=== PATIENT | female | born 1965 | race Caucasian/White ===

== ENCOUNTER 2020-02-28 10:31 | Outpatient (CLI) | payer OTHER, SELFPAY ==
--- NOTE | 2020-02-28 10:45 | ECG_ITS ---
Measurements Intervals [place] Rate: 82 P: 58 VA: 143 QRS: 9 QRSD: 86 T: 62 QT: 350 QTc: 409 Interpretive Statements SINUS RHYTHM BASELINE ARTIFACT- I, II, III, AVR, AVL, AVF NORMAL ECG Electronically Signed On 02-28-2020 10:48:56 CDT by Mike Walker D.O.
== END 2020-02-28 10:32 | disposition home or self-care (01) ==
LOC: ANHSURGERY 10:36
PROVIDERS: Visit Provider Obstetrics & Gynecology
DX: E78.00 Pure hypercholesterolemia, unspecified (principal); Z01.818 Encounter for other preprocedural examination
CPT/HCPCS: 93005

== ENCOUNTER 2020-03-05 00:38 | Outpatient (CLI) | payer OTHER, SELFPAY ==
[2020-03-05 16:30] LABS: SARS-CoV-2 RNA PCR Negative
== END 2020-03-05 00:39 | disposition home or self-care (01) ==
LOC: ANHCOVIDDT 00:38
PROVIDERS: Visit Provider Obstetrics & Gynecology
DX: Z01.812 Encounter for preprocedural laboratory examination (principal); Z20.828 Contact with and (suspected) exposure to other viral communicable diseases
CPT/HCPCS: 87635; C9803; U0003

== ENCOUNTER 2020-03-07 00:39 | Day surgery (SDC) | payer OTHER, SELFPAY ==
[2020-02-24 10:43] VITALS: BMI 30.9
--- NOTE | 2020-03-06 08:41 | WPDANESEPPF ---
Anes - Initial Pre Proc Eval Procedure: Operation Date: 03/07/20 11:15 Proposed Procedures p Hysteroscopy, Dilation And Curettage, Possible Myosure - Baljinder Tomas MD Date/Time: 03/06/20 08:41 Surgeon: Baljinder Tomas MD Pre Op Diagnosis: Thickened Endometrium Patient Data Age: 54 Gender: F Height: 1.63 m Weight: 81.65 kg Allergies Allergy/AdvReac Type Severity Reaction Status Date / Time No Known Allergies Allergy Verified 03/07/20 09:29 Home Medications Medication Instructions Recorded Confirmed Type atorvastatin 20 mg tablet 20 mg PO DAILY 11/22/19 03/07/20 History duloxetine 60 mg capsule,delayed 60 mg PO DAILY 11/22/19 03/07/20 History release calcium carbonate 500 mg calcium 500 mg PO DAILY 02/01/20 03/07/20 History (1,250 mg) tablet exemestane 25 mg tablet 25 mg PO DAILY 02/01/20 03/07/20 History Zoladex See Rx Instructions .ROUTE .COMPLEX 02/24/20 02/24/20 History prochlorperazine maleate 10 mg PO Q6H PRN 02/24/20 02/24/20 History Patient hx anesthesia problems: none Family hx anesthesia problems: none PMFSH Past Medical History Medical History (Updated 03/07/20 @ 10:13 by Alonso Nevarez DO) Breast cancer, Tx and Mx Depression High cholesterol Vaginal delivery x 2 Surgical History Surgical History History of arthroscopic knee surgery History of surgery on arm Family History Family History Mother Hypertension, Onset Age: 68 Patient's mother is Father Hypertension Family history of elevated blood lipids Sibling Family history of elevated blood lipids Social History Social History Smoking status: Never smoker Second hand tobacco smoke exposure: No Alcohol intake: current Spiritual care concerns: No Anes - Eval Final PreProcedure Day of Procedure 03/06/20 08:41 Patient weight: obese Heart: regular rate and rhythm Lungs: clear to auscultation and normal air movement Airway: Mallampati scale class II Neurological: alert and oriented Last oral intake: >/= 8 hours ASA classification: II Emergent: no Anesthetic plan: proceed Anesthesia type and monitoring: general GIVS and standard monitoring Informed Consent: The patient's anesthetic plan and its attendant risks and benefits were discussed with the patient/family/POA. Questions were solicited and answers provided to the satisfaction of the patient/family/POA.
--- NOTE | 2020-03-07 06:20 | PM.IMHP ---
H&P: HPI History of Present Illness Date/Time: 03/07/20 06:20 Chief complaint: Thickened Endometrium Narrative: Felicitas Berrios is a 54 year old female with thickened endometrial stripe on ultrasound. She is undergoing treatment for breast cancer and had test done by oncologist which showed her not to be menopausal range. Due to being on tamoxifen and risk of endometrial pathology, a pelvic ultrasound was ordered to evaluate the endometrial lining and the endometrial lining was thickened and some vascularity in the thickening. Subsequent endometrial biopsy in office was negative for polyp, hyperplasia or carcinoma but did comment on presence of hobnail cells which she was informed can be seen if lining is undergoing changes toward hyperplasia. Due to this and her risk of abnormal endometrial histology on her current medication, it was recommended for direct visualization and biopsy if indicated and dilation and currettage. She agreed to this. Review of Systems Review of Systems: All systems reviewed & are unremarkable except as noted in HPI and below Constitutional: Constitutional: Reports no additional constitutional complaints Eyes: Eyes: Reports no additional eye complaints ENT: Reports Normal hearing present Cardiovascular: Cardiovascular: Denies chest pain and Denies dyspnea Respiratory: Respiratory: Reports no additional respiratory complaints, Reports cough, Denies dyspnea and Reports other Gastrointestinal: Gastrointestinal: Denies abdominal pain Genitourinary: Genitourinary: Reports no additional female genitourinary complaints, Reports as per HPI, Denies dyspareunia, Denies vaginal discharge, Denies vaginal dryness, Denies vaginal odor and Denies vaginal pruritus Integumentary/Breasts: Skin/Breast: Denies breast mass and Denies nipple discharge Neurologic: Reports Normal hearing present Psychiatric: Psychiatric: Reports no additional psychiatric complaints Endocrine: Endocrine: Reports no additional endocrine complaints Hematologic/Lymphatic: Hematologic/Lymphatic: Reports no additional hematologic/lymphatic complaints [facility] Past Medical History Medical History (Updated 03/07/20 @ 10:13 by Alonso Nevarez DO) Breast cancer, Tx and Mx Depression High cholesterol Vaginal delivery x 2 Surgical History Surgical History History of arthroscopic knee surgery History of surgery on arm Family History Family History Mother Hypertension, Onset Age: 68 Patient's mother is Father Hypertension Family history of elevated blood lipids Sibling Family history of elevated blood lipids Social History Social History Smoking status: Never smoker Second hand tobacco smoke exposure: No Alcohol intake: current Spiritual care concerns: No Meds Home Medications and Allergies Home Medications Medication Instructions Recorded Confirmed Type atorvastatin 20 mg tablet 20 mg PO DAILY 11/22/19 03/07/20 History duloxetine 60 mg capsule,delayed 60 mg PO DAILY 11/22/19 03/07/20 History release calcium carbonate 500 mg calcium 500 mg PO DAILY 02/01/20 03/07/20 History (1,250 mg) tablet exemestane 25 mg tablet 25 mg PO DAILY 02/01/20 03/07/20 History Zoladex See Rx Instructions .ROUTE .COMPLEX 02/24/20 02/24/20 History prochlorperazine maleate 10 mg PO Q6H PRN 02/24/20 02/24/20 History Allergies Allergy/AdvReac Type Severity Reaction Status Date / Time No Known Allergies Allergy Verified 03/07/20 09:29 Exam Const: General: healthy appearing, no acute distress, alert and awake Nutritional Appearance: well nourished Orientation/consciousness: oriented to person, oriented to place, oriented to time and patient oriented x3 HENMT: Head: normal to inspection Eyes: General: appearance normal, both eye
[2020-03-07 09:27] VITALS: BP 122/82; PULSE 85; RESP 20; TEMP 36.2; O2SAT 97
[2020-03-07] MEDS: ACETAMINOPHEN 500 MG TABLET 1000 MG PO (09:42)
[2020-03-07] MEDS: LACTATED RINGERS 1,000 ML 30 ML IV CONT (09:43)
--- NOTE | 2020-03-07 11:10 | SUR.PREOP ---
update provided r/t to delay w/surgeon/acknowledges understanding/family update provided as noted.
--- NOTE | 2020-03-07 12:59 | WPDHPUPDATE1 ---
History and Physical Update Update Date/Time: 03/07/20 12:59 History and Physical has been reviewed, including an updated exam of the patient. There are NO changes in the patient's condition. Risks, benefits, and alternatives have been discussed and questions answered. Patient agrees to proceed with procedure.
[2020-03-07] MEDS: ceFAZolin 2 GM/D5W 50 ML 2 GM/50 ML BAG IVPB (13:18)
[2020-03-07 13:55] VITALS: BP 104/63; PULSE 59; RESP 20; O2SAT 90
[2020-03-07] MEDS: fentaNYL CITRATE INJ (*CRX) 100 MCG/2 ML VIAL 25 MCG IV PUSH ×2 (14:01→14:08)
[2020-03-07 14:15] VITALS: BP 106/67; PULSE 57; RESP 20; O2SAT 93
[2020-03-07 14:45] VITALS: BP 142/78; PULSE 52; RESP 20; O2SAT 96
[2020-03-07 15:15] VITALS: BP 126/67; PULSE 54; RESP 20
--- NOTE | 2020-03-08 12:16 | PM.PROC ---
Procedure Note - Detailed Date of procedure: 03/08/20 Pre-op diagnosis: Thickened Endometrium Post-op diagnosis: same (1. Endometrial lesion) Procedure performed: Hysteroscopy with dilation and currettage and myosure excision of endometrial lesion. Description of procedure: After informed consent was obtained patient was taken to the operating room. Adequate IV sedation was obtained. she was placed in high lithotomy position and prepped and draped in sterile fashion. Attention was turned to the vagina. Speculum was inserted. Single-tooth tenaculum placed on anterior lip of the cervix. The uterus was sounded to 8 centimeters. The cervix was dilated to a size 8 Andrade dilator. The hysteroscope was inserted. The cavity there was a flat growth anterior mid to lower cavity. The myosure was inserted and the lesion was excised. The hysteroscope was removed and a sharp curettage was performed. Scant tissue obtained. An endocervical curettage was also performed. The tenaculum was removed hemostasis was noted at the tenaculum site. The speculum was removed. The patient tolerated the procedure well. There was a 250cc discrepancy of insufflation fluid of normal saline. Patient was taken to recovery room in stable condition the sponge count was correct x3. Anesthesia: MAC and local Surgeon: Baljinder Tomas MD Estimated blood loss (mL): 5 Drains: No Packing: No Pathology: yes (1. Endocervical currettage 2. Endometrial currettings) Complications: No immediate complications Condition: stable Disposition: same day Findings: Uterus sound to 8cm, uterine cavity with flat lesion excised.
== END 2020-03-07 15:29 | disposition home or self-care (01) ==
PROVIDERS: Visit Provider Obstetrics & Gynecology
PROC: 0U5B8ZZ Destruction of Endometrium, Via Natural or Artificial Opening Endoscopic (ICD-10-PCS; CPT 58563; principal; 2020-03-07 11:15)
DX: N84.0 Polyp of corpus uteri (principal); E78.00 Pure hypercholesterolemia, unspecified; F32.9 Major depressive disorder, single episode, unspecified; Z79.811 Long term (current) use of aromatase inhibitors; Z85.3 Personal history of malignant neoplasm of breast; E66.9 Obesity, unspecified; Z68.31 Body mass index [BMI] 31.0-31.9, adult
CPT/HCPCS: 58558; 88305; A9270; J0690; J2250; J2704; J3010; J7030; J7120

== ENCOUNTER 2025-03-02 11:16 | Outpatient (CLI) | payer OTHER, SELFPAY ==
--- NOTE | ~2025-03-02 | US_ITS ---
EXAMINATION: US pelvic complete w TV, 03/02/2025 11:18 CDT HISTORY: R31.9 - Hematuria, unspecified Comparison: None Technique: Steinberg-scale and color Doppler images were obtained. Findings: Uterus: Uterus anteverted in 6.2 x 3.2 x 4 cm. . Endometrium 6.2 mm. Within the endometrium there is a small cystic focus measuring 5 x 7 mm, no increased flow. Right Ovary:Right ovary not identified due to bowel gas. Left Ovary: Left ovary not identified due to bowel gas. Free Fluid: None Impression: Endometrial lesion detailed above. Cystic endometrial neoplasm is not excluded. Tissue sampling suggested Reviewed, dictated and finalized at location P. Impression: Endometrial lesion detailed above. Cystic endometrial neoplasm is not excluded. Tissue sampling suggested
== END 2025-03-02 11:17 | disposition home or self-care (01) ==
LOC: MICIMG 11:17
PROVIDERS: PCP Obstetrics & Gynecology; Visit Provider Obstetrics & Gynecology
DX: R31.9 Hematuria, unspecified (principal); N95.0 Postmenopausal bleeding
CPT/HCPCS: 76830; 76856

== ENCOUNTER 2025-04-12 01:41 | Day surgery (SDC) | payer OTHER, SELFPAY ==
--- OUTSIDE RECORDS SUMMARY | 2019-02-03 18:00 | XMS_ITS | Continuity of Care Document ---
[facility] Organization [facility] Address [address] [place] [address] Phone Care Team Providers Care Ocean Import Representative Name Role Phone Danny Ferro MD Unavailable Unavailable Procedures Procedure Date SCREENING COLONOSCOPY (NOT HIGH RISK) Advance Directives Directive Yes / No Effective Date File Name No Information Encounters Encounter Description Practice Location Reason(s) For Visit Diagnoses Date Provider Providers Copied on Encounter [facility], [address], [place], [place], [id number], [place] tel:[phone] [facility] No Information Pillo Delgado. [address] [facility], [address] [place], [address], [place]. tel:[phone] Referring Provider: Elgin Tyler, [facility] [address], [address]. tel:[phone] Family History Family Member Type Diagnosis Age At Onset No Information Payers Payer name Insurance type Covered alliance party ID Authoriza tion(s) [facility] [id number] Social History Type Description Quantity Date Captured Comments Sex Female Smoking Status No Information Chief Complaint And Reason For Visit No Information Reason For Referral Reason For Referral No Information History Of Present Illness Encounter Date Complaint History Of Prese nt Illness No Information Functional Status Date Functional Assessmen t No Information Instructions Date Instruction Additional Infor mation No Information Assessments Type Assessment Date No Information Patient Care Teams Name Effective Dates (start - stop) Status Members No Information
--- NOTE | 2025-04-10 09:39 | PC.NURSE ---
[facility] has started construction of its new state of the art ER which will open Spring 2026. With this, we anticipate parking may be a challenge for some our surgical patients and families. Parking spaces are limited but are available for all Surgical, obstetrics, and ER patients sharing this lot. If you arrive and find you are having a hard time finding a parking space, please note that we understand the challenges, please drive around the hospital and park near Hospital Entrance 1. When you enter this entrance, you can ask a volunteer to direct or take you back to the surgical waiting area to check in. We appreciate everyone?s understanding of these expected challenges while we build for your future. Report to the Outpatient Waiting Room, entrance under the green pavilion located off [address], at time __12:30 PM on date __04/12/25 . Planned Procedure Time: __2:30 PM .? Time changes happen often and if your time is changed the preop area will call you the afternoon before. - You and your visitor will be asked to self-screen and do not enter if you have any COVID symptoms. Please call surgeon if you need to reschedule. - A mask is optional within the hospital at this time. Patients may have clear liquids (water, carbonated beverages, clear teas, apple juice) until 3 hours prior to surgery ( 11:30 AM)with a maximum of 20 ounces. - No food from midnight until time of surgery and no smoking, or chewing tobacco (or any form of nicotine). No chewing gum, candy or mints. Take only the following medications with a SIP of water on the morning of surgery: ___DULOXETINE DO NOT STOP ANY OF YOUR OTHER PRESCRIPTION MEDICATIONS PRIOR TO SURGERY EXCEPT THE FOLLOWING Hold all vitamins and supplements for 3 days per anesthesiologist.LAST DOSE 04/09/25 Medications to discontinue per physician NONE Please no make-up, nail sinhala, hairspray, perfume, deodorant, or body powder the day of surgery.? No jewelry (including any body piercings) or valuables the day of surgery, leave them at home.? Please take a shower or bath the night before, or the morning of, surgery with an antibacterial soap.? Wear comfortable, loose fitting clothing.? Children are encouraged to wear pajamas. - Jewelry must be removed prior to entering the operating room.? Rings and piercings that are not removed may be cut off. - The hospital will not accept responsibility for valuables.? - Please leave all valuables, including medications, at home the day of surgery. If you are going home after surgery, a licensed national dedicated truck driver must drive you home.? - NO public transportation without another adult if you receive anesthesia. - We recommend that an adult stay with you for 24 hours following discharge. - We also recommend that you do not drive, make important decision, drink alcoholic beverages, or take any drugs that were not prescribed by your health care provider for at least 24 hours after your discharge time. Follow any additional instructions given to you from your surgeon. Telephone instructions given to __PATIENT and asked if any additional questions and then verbalized understanding. Patient advised to call surgeon office or pre surgery nurse liaison [phone] if any additional questions.
[2025-04-10 09:57] VITALS: BMI 30.4
--- OUTSIDE RECORDS SUMMARY | 2025-04-12 01:44 | XMS_ITS | Clinical Summary ---
Author Organization [facility] Address [address] [place] [address] Care Team Providers Care National Secretary Name Role Phone Unavailable Primary Care Provider Unavailabl e Social History Tobacco Use Types Packs/Day Years Used Date Smoking Tobacco: Never Assessed Comments Unknown Sex and Gender Information Value Date Recorded Sex Assigned at Not on file Legal Sex Female 7:24 PM CDT Gender Identity Not on file Sexual Orientation Not on file Plan of Treatment Health Maintenance Due Date Last Done Comments Cervical Cancer Screening Pa p Smear (Age 30 to 64) Every 3 Years 1966 Colorectal Cancer Screening Colonoscopy (10 Years) 1966 Annual Physical 1969 Hepatitis C 1984 DTaP, Tdap and Td Vaccines ( 1 - Tdap) 1985 Hepatitis B Vaccines (1 of 3 - 19+ 3-dose series) 1985 Cervical Cancer Screening Pa p with HPV Testing (Age 30 to 64) Every 5 Years 1996 Cervical Cancer Screening with HPV 1996 Mammogram Screening 2006 Pneumococcal Vaccine: 50+ Ye ars (1 of 1 - PCV) 2016 Zoster Vaccines (1 of 2) 2016 COVID-19 Vaccine (2024-2 6 season) 2025 Influenza Adult (#1) 2025 Hepatitis A Vaccines Aged Out No long er eligible based on patient's age to complete this topic Meningococcal B Vaccine Aged Out No l onger eligible based on patient's age to complete this topic Meningococcal Vaccine Aged Out No tiffany karlene eligible based on patient's age to complete this topic RSV Immunizations Under 20 Months Aged Out No longer eligible based on patient's age to complete this topic
--- OUTSIDE RECORDS SUMMARY | 2025-04-12 01:44 | XMS_ITS | Encounter Summary ---
Author Organization [facility] Address [address] [place] [address] Phone Care Team Providers Care Substation Mechanic Name Role Phone Prosper Vinson DO Primary Care Provider [phone] Baljinder Tomas MD Unavailable Elgin Tyler MD Unavailable Tiffanie Walden MD Unavailable Jesenia Grimaldo MD Unavailable Marin Piña DO Primary Care Provider Kalee Leija Unavailable Jagdish Huynh MD Unavailable Encounter Details Date Type Department Care Team (Late st Contact Info) Description 01/27/2019 Documentation [facility] Medicine Surgery [address] [place] [address] Suma Arredondo Social History Tobacco Use Types Packs/Day Years Used Date Smoking Tobacco: Never Smokeless Tobacco: Never Alcohol Use Standard Drinks/Week Comments Yes 1 (1 standard drink = 0.6 oz pur e alcohol) socially Comments No Sex and Gender Information Value Date Recorded Sex Assigned at Not on file 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 Gender Identity Not on file Sexual Orientation Not on file documented as of this encounter Plan of Treatment Not on file documented as of this encounter Visit Diagnoses Not on filedocumented in this encounter Care Teams Substation Mechanic Relationship Specialty Start Date End Date Prosper Vinson DO [address] [place] [address] PCP - General Family Medicine 09/01/18 06/02/19 Marin Piña DO [address] [place] [address] PCP - General Family Practice 06/03/19 Baljinder Tomas MD [address] [facility] [address] [facility] [address] [place] [address] Referring Physician Obstetrics and Gynecology 09/01/18 Elgin Tyler MD [address] [place] [address] Medical Oncologist/Flatware Maker Medical Oncology 12/06/18 12/17/23 Tiffanie Walden MD [address] [place] [address] Surgeon Surgical Oncology 12/06/18 Jesenia Grimaldo MD [address] [facility] [address] [place] [address] Referring Physician Plastic Surgery 12/06/18 [place] [address] [address] [facility] [address] [place] [address] Physician Magnetic Prospecting Operator Orthopedic Surgery 09/26/20 [place] [address] [address] [facility] [address] [place] [address] Consulting Physician Medical Oncology 07/05/21 documented as of this encounter
--- OUTSIDE RECORDS SUMMARY | 2025-04-12 01:44 | XMS_ITS | Encounter Summary ---
Author Organization [facility] Address [address] [place] [address] Phone Care Team Providers Care Woodworking Belt Sander Name Role Phone Baljinder Tomas MD Unavailable [phone] Elgin Tyler MD Unavailable Tiffanie Walden MD Unavailable Jesenia Grimaldo MD Unavailable Marin Piña DO Primary Care Provider Kalee Leija Unavailable Jagdish Huynh MD Unavailable Encounter Details Date Type Department Care Team (Latest Contact Info) Description 01/25/2020 Orders Only [facility] Scanning, Provider Social History Tobacco Use Types Packs/Day Years Used Date Smoking Tobacco: Never Smokeless Tobacco: Never Alcohol Use Standard Drinks/Week Comments Yes 1 (1 standard drink = 0.6 oz pur e alcohol) socially Comments No Sex and Gender Information Value Date Recorded Sex Assigned at Not on file 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 Gender Identity Not on file Sexual Orientation Not on file documented as of this encounter Plan of Treatment Not on file documented as of this encounter Procedures Procedure Name Priority Date/Time Associated Diagnosis Comments SCAN - RADIOLOGY/IMAGING 01/25/2020 documented in this encounter Results * SCAN - RADIOLOGY/IMAGING (01/25/2020) Anatomical Region Laterality Modality Other us Provider Scanning Final Result documented in this encounter Visit Diagnoses Not on filedocumented in this encounter Care Teams Woodworking Belt Sander Relationship Specialty Start Date End Date Marin Piña DO [address] [place] [address] PCP - General Family Practice 06/03/19 Baljinder Tomas MD [address] [place], [place] [id number] Referring Physician Obstetrics and Gynecology 09/01/18 Elgin Tyler MD [address] [place] [address] Medical Oncologist/Furnace Caretaker Medical Oncology 12/06/18 12/17/23 Tiffanie Walden MD [address] [place] [address] Surgeon Surgical Oncology 12/06/18 Jesenia Grimaldo MD [address] [facility] [address] [place] [address] Referring Physician Plastic Surgery 12/06/18 [place] [address] [facility] [address] [place] [address] Physician Customer Manager Orthopedic Surgery 09/26/20 [place] [address] [facility] [address] [place] [address] Consulting Physician Medical Oncology 07/05/21 documented as of this encounter
--- OUTSIDE RECORDS SUMMARY | 2025-04-12 01:44 | XMS_ITS | Encounter Summary ---
Author Organization [facility] Address [address] [place] [address] Phone Care Team Providers Care Repairer Welding Equipment Name Role Phone Baljinder Tomas MD Unavailable [phone] Elgin Tyler MD Unavailable Tiffanie Walden MD Unavailable [phone] Jesenia Grimaldo MD Unavailable Marin Piña DO Primary Care Provider Kalee Leija Unavailable Jagdish Huynh MD Unavailable Encounter Details Date Type Department Care Team (Latest Contact Info) Description 02/01/2020 Orders Only [facility] Scanning, Provider Social History Tobacco Use Types Packs/Day Years Used Date Smoking Tobacco: Never Smokeless Tobacco: Never Alcohol Use Standard Drinks/Week Comments Yes 1 (1 standard drink = 0.6 oz pur e alcohol) socially Comments No Sex and Gender Information Value Date Recorded Sex Assigned at Not on file 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 Gender Identity Not on file Sexual Orientation Not on file documented as of this encounter Plan of Treatment Not on file documented as of this encounter Procedures Procedure Name Priority Date/Time Associated Diagnosis Comments SCAN - LABS 02/01/2020 documented in this encounter Results * SCAN - LABS (02/01/2020) us Provider Scanning Final Result documented in this encounter Visit Diagnoses Not on filedocumented in this encounter Care Teams Repairer Welding Equipment Relationship Specialty Start Date End Date Marin Piña DO [address] [place] [address] PCP - General Family Practice 06/03/19 Baljinder Tomas MD [address] [facility] [address] [place], [place] [id number] Referring Physician Obstetrics and Gynecology 09/01/18 Elgin Tyler MD [address] [place] [address] Medical Oncologist/Grazing Aide Medical Oncology 12/06/18 12/17/23 Tiffanie Walden MD [address] [place] [address] Surgeon Surgical Oncology 12/06/18 Jesenia Grimaldo MD [address] [facility] [address] [place] [address] Referring Physician Plastic Surgery 12/06/18 [place] [address] [facility] [address] [place] [address] Physician Grant Writer Orthopedic Surgery 09/26/20 [place] [address] [facility] [address] [place] [address] Consulting Physician Medical Oncology 07/05/21 documented as of this encounter
--- OUTSIDE RECORDS SUMMARY | 2025-04-12 01:45 | XMS_ITS | Encounter Summary ---
Author Organization [facility] Address 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
--- OUTSIDE RECORDS SUMMARY | 2025-04-12 01:45 | XMS_ITS | Clinical Summary ---
Author Organization [facility] Address [address] [place] [address] Care Team Providers Care Tank Builder And Erector Name Role Phone Baljinder Tomas MD Unavailable [phone] Tiffanie Walden MD Unavailable [phone] Jesenia Grimaldo MD Unavailable [phone] Marin Piña DO Primary Care Provider Kalee Leija Unavailable Jagdish Huynh MD Unavailable Allergies No known active allergies Medications DULoxetine DR (CYMBALTA) 60 mg capsuleIndicat ions:Anxiety with Depression,Dep ression Take 1 capsule (60 mg total) by mouth every morning Active calcium carbonate/melissa min D3 (CALCIUM 600 WITH VITAMIN D3 ORAL) Take 1 tablet by mouth daily Active atorvastatin (LIPITOR) 40 mg tablet 2 Active vitamin E acetate (VITAMIN E ORAL) Take 180 mg by mouth daily 3 Active hydrOXYzine (ATARAX) 25 mg tablet Take 1 tablet (25 mg total) by mouth 3 (three) times a day as needed [address] (CYMBALTA) 30 mg capsule 5 Active exemestane (AROMASIN) 25 mg tabletIndicati ons:Malignant neoplasm of central portion of left breast in female, estrogen receptor positive (HCC) TAKE 1 TABLET DAILY AFTER A MEAL 90 tablet 3 5 Active ergocalciferol (VITAMIN D) 50,000 unit capsule TAKE 1 CAPSULE EVERY 14 DAYS 6 capsule 3 5 Active ergocalciferol (VITAMIN D) 50,000 unit capsule TAKE 1 CAPSULE EVERY 14 DAYS 6 capsule 3 4 03/31/20 25 Discontinued Active Problems Problem Noted Date Diagnosed Date Malignant neoplasm of upper- inner quadrant of right breast in female, estrogen receptor positive 12/17/2022 Bone disorder 02/20/2020 retirement current use of aromatase inhibitor 04/2020 Hx of breast cancer 01/26/2019 Overview (01/26/2019): Added automatically from request for surgery [id number] Hx of breast reconstruction 01/26/2019 Overview (01/26/2019): Added automatically from request for surgery [id number] Bilateral malignant neoplasm of breast in female 11/02/2018 Overview (11/02/2018): Added automatically from request for surgery [id number] Malignant neoplasm of centra l portion of left breast in female, estrogen receptor positive 10/22/2018 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 Abnormal mammogram of left breast 09/23/2018 Vitamin D deficiency 04/14/2017 Hypertriglyceridemia 04/14/2017 History of depression 04/13/2017 Arthralgia of shoulder 03/30/2014 Closed fracture of shaft of humerus 07/22/2013 Pain of foot 07/22/2013 Major depression 03/29/2012 Overview (09/03/2020): Dr Peg Hemphill Hypothyroidism 03/29/2012 Overview (09/03/2020): Dr KASPER Had ultrasound, dx hypothyroid On replacement therapy Bilateral hand numbness Bilateral carpal tunnel syndrome Assessment & Plan (09/03/2020 11:35 AM CDT): Patient has bilateral carpal tunnel syndrome with the left side being the most symptomatic. She does appear to have some atrophy on the left thenar eminence as well. Having potential motor involvement I would recommend surgical decompression. Patient was advised risks of infection, incisional numbness, neuroma formation, damage to the median nerve recurrent branch of the median nerve, wound dehiscence keloid formation seroma hematoma formation, neurovascular compromise, medical and anesthetic risks including is willing to proceed. 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 but her EMG nerve conduction study did not reveal any cervical issues Immunizations Immunization Administration Dates Next Due Influenza, Quadrivalent, Alie l Culture-based MDCK, Preservative Free, Antibiotic Free, Intramuscular 03/18/2021,02/20/2020,02/24/2019 Influenza, Trivalent, Split, Preservative Free, Intradermal 03/06/2014 Pfizer SARS-CoV-2 Monovalent Vaccination (12+ Yrs) PURPLE 08/05/2020 Tdap 04/13/2017 Surgical History Surgery Date Site/Laterality Comments ARM SURGERY 05/11/2013 - 05/10/2014 Left upper KNEE SURGERY 05/11/1997 - 05/10/1998 Bilateral Arthroscopic BREAST BIOPSY 09/23/2018 Left BREAST BIOPSY 10/08/2018 Right MASTECTOMY 11/10/2018 Bilateral [facility] UPPER GASTROINTESTINAL ENDOSCOPY COLONOSCOPY CATARACT EXTRACTION, BILATERAL CARPAL TUNNEL RELEASE 09/26/2020 Left Medical History Medical History Date Comments Headache Depression Overweight Thyroid disease Stomach ulcer age 13 Depression Frequent headaches Wears glasses Hypercholesteremia Peptic ulceration Breast cancer (HCC) Hypertriglyceridemia 04/14/2017 Carpal tunnel syndrome Carpal tunnel syndrome, right Malignant neoplasm of upper- inner quadrant of right breast in female, estrogen receptor positive 12/17/2022 Family History Medical History Relation Name Comments Hypertension Brother Bleeding Disorder Father Family his tory of bleeding disorder - (Added by TW Conv) Blood Clot Father Family history of blood clots - (Added by TW Conv) Heart disease Father Family history of cardiac disorder - (Added by TW Conv) Hypertension Father Family history of hypertension - (Added by TW Conv) Stroke Father Family history of cerebrovascular accident - (Added by TW Conv) Hepatitis Mother Hypertension Mother Kidney disease Mother Depression Sister Anesthesia problems Neg Hx Relation Name Status Comments Brother Father Mother Sister Social History Tobacco Use Types Packs/Day Years Used Date Smoking Tobacco: Never Smokeless Tobacco: Never Tobacco Cessation:Counseling Given: Not Answered Alcohol Use Standard Drinks/Week Comments Yes 1 (1 standard drink = 0.6 oz pur e alcohol) socially AUDIT-C Answer Date Recorded Q1: How often do you have a drink containing alc ohol? 2-4 times a month 01/11/2021 Q2: How many drinks containi ng alcohol do you have on a typical day when you are drinking? 1 or 2 01/11/2021 Q3: How often do you have si x or more drinks on one occasion? Never 01/11/2021 Comments No Sex and Gender Information Value Date Recorded Sex Assigned at Not on file Legal Sex Female 10:49 AM HOSEMAN Gender Identity Not on file Sexual Orientation Not on file Last Filed Vital Signs Vital Sign Reading Time Taken Comments Blood Pressure 142/91 12/23/2024 10:02 AM CDT Pulse 91 12/23/2024 10:02 AM CDT Temperature 36.4 C (97.5 F) 12/23/2024 10:02 AM CDT Respiratory Rate 18 12/23/2024 10:02 AM CDT Oxygen Saturation 99% 12/23/2024 10:02 AM CDT Inhaled Oxygen Concentration - - Weight 79.4 kg (175 lb) 12/23/2024 10:02 AM CDT Height 163.8 cm (5' 4.5) 12/23/2024 10:02 AM CD T Body Mass Index 29.57 12/23/2024 10:02 AM CDT Plan of Treatment Health Maintenance Due Date Last Done Comments Breast Cancer Screening-Mammogram 1966 Cervical Cancer Screening 1966 Colon Cancer Screening-Colonoscopy 1966 Depression Screening 1966 Hepatitis C Screening 1966 Hepatitis B Screening 1984 Regular Well Visit/Exam 18-64 1984 Pneumococcal vaccine <65 (1 of 2 - PCV) 1985 Zoster Vaccine (1 of 2) 1985 Covid-19 Vaccine (3 - Pfizer risk series) 05/23/2021 04/25/2021, 08/05/2020 Influenza Vaccine (#1) 2025 , 02/20/2020, 02/24/2019, Additional history exists DTaP/Tdap/Td Vaccine (2 - Td or Tdap) 04/13/2027 04/13/2017 Medical Devices Implanted Type Area Director Of Kids Device Identifier Shelf Expiration Date Model / Serial / Lot [employer] [id number]-88-[id number] Implant Mammary Natrelle Te Smooth 397b-Dz-94-T With Fourte - [id number] - [id number] Implanted:Qty: 1 on 11/10/2018 by Jesenia Grimaldo MD at [facility] Breast Right: Breast [employer] [id number] 06/05/2023 133S-MX-1 4-T / [id number] / 0 [employer] 666o-[id number]-79-T Implant Mammary Natrelle Te Smooth 753s-Mo-71-T With Fourte - [id number] - [id number] Implanted:Qty: 1 on 11/10/2018 by Jesenia Grimaldo MD at [facility] Breast Left: Breast [employer] [id number] 06/05/2023 133S-MX-1 4-T / [id number] / 0 [employer] Ssx-650 Natrelle Inspira Smooth Shell Surface Extra Full Profile Implant Latex Free - [id number] - [id number] Implanted:Qty: 1 on 02/18/2019 by Jesenai Grimaldo MD at [facility] Breast Right: Breast [employer] 12/11/2022 SSX-650 / [id number] / [id number] Breast Biopsy Marker- 9 Implanted:09/23 (Quantity not on file) Breast Life Cell Gissel [id number] Alloderm Select 48c58oh Allograft Regenerative Thk.4-2.4mm Thick - [id number] - [id number] Implanted:Qty: 1 on 11/10/2018 by Jesenia Grimaldo MD at [facility] Right: Breast [employer] 10/08/2020 [id number] / [id number] / [id number] Life Cell Gissel [id number] Alloderm Select 12i84og Allograft Regenerative Thk.4-2.4mm Thick - [id number] - [id number] Implanted:Qty: 1 on 11/10/2018 by Jesenia Grimaldo MD at [facility] Left: Breast [employer] 09/07/2020 [id number] / +[id number] / [id number] [employer] Ssx-650 Georgettee Ziira Smooth Shell Surface Extra Full Profile Implant Latex Free - [id number] - [id number] Implanted:Qty: 1 on 02/18/2019 by Gina Hillman MD at [facility] Left: Breast [employer] 09/20/2023 SSX-650 / [id number] / [id number] Explanted Type Area Director Of Kids Device Identifier Shelf Expiration Date Model / Serial / Lot Allergan Ceramic Engineering Professor Explanted:Qty: 1 on 02/18/2019 by Jesenia Grimaldo MD at [facility] Breast Left: Breast [employer] / 0 / [id number] Description:Allergan tissue echocardiograph technician svx-14 cm 600 cc Allergan Tissue Ceramic Engineering Professor Explanted:Qty: 1 on 02/18/2019 by Jesenia Grimaldo MD at [facility] Breast Right: Breast [employer] / 0 / [id number] Description:Allergan svx-14 cm 600cc Insurance [facility] CHOICE PLUS [facility] HMO/PPO Address: [facility] [address] [place] [address] GENERIC COPAY ASSIST Maria Fernanda MORENO [address] CHOICE PLUS [facility] HMO/PPO Address: [facility] [address] [place] [address] Maria Fernanda [place] [id number] [facility] CHOICE PLUS [facility] HMO/PPO Address: [facility] [address] [place] [address] Advance Directives For more information, please contact: [phone] * Full Code (Latest Code Status on File) Date Activated Date Inactivated Comments 11/10/2018 2:13 PM 11/11/2018 2:11 PM Care Teams Tank Builder And Erector Relationship Specialty Start Date End Date Marin Piña DO [address] [place] [address] PCP - General Family Practice 06/03/19 Baljinder Tomas MD [address] [facility] [address] [place] [address] Referring Physician Obstetrics and Gynecology 09/01/18 Tiffanie Walden MD [address] [place] [address] Surgeon Surgical Oncology 12/06/18 Jesenia Grimaldo MD [address] [facility] [address] [place] [address] Referring Physician Plastic Surgery 12/06/18 [place] [address] [address] [facility] [address] [place] [address] Physician Toggler Orthopedic Surgery 09/26/20 [place] [address] [address] [facility] [address] [place] [address] Consulting Physician Medical Oncology 07/05/21
--- OUTSIDE RECORDS SUMMARY | 2025-04-12 01:45 | XMS_ITS ---
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 04/2020 Hx of breast cancer 01/26/2019 Overview (01/26/2019): Added automatically from request for surgery [id number] Hx of breast reconstruction 01/26/2019 Overview (01/26/2019): Added automatically from request for surgery [id number] Bilateral malignant neoplasm of breast in female 11/02/2018 Overview (11/02/2018): Added automatically from request for surgery [id number] Malignant neoplasm of centra l portion of [...] study did not reveal any cervical issues Current Treatment and Therapy Plans IV Maintenance Therapy Plan* Plan Start Date:12/22/2024 Plan Provider:Jagdish Huynh MD Linked Problems Malignant neoplasm of centra l portion of left breast in female, estrogen receptor positive (HCC) Treatment Medications No medications scheduled. Zoledronic Acid (ZOMETA) Infusion* Plan Start Date:12/12/2022 Plan Provider:Erika Vazquez NP Linked Problems Bilateral malignant neoplasm of breast in female, estrogen receptor positive, unspecified site of breast (HCC)Bone disorderLong term current use of aromatase inhibitor Treatment Medications No medications scheduled. Past Treatment and Therapy Plans Line Care Plan Name Start Date Discontinue Date Treatment Medications Discontinue Reason Plan Provider IV Maintenance Therapy Plan 03/19/2020 07/21/2023 No medications scheduled. Automatic discontinuation of dormant plans Elgin Tyler MD Oncology Chemotherapy Treatment Plan Name Start Date Discontinue Date Treatment Medications Discontinue Reason Plan Provider Cycles Goserelin 28 Day Cycles - Breast 0 07/11/2021 goserelin (ZOLADEX) Provider Discretion Jagdish Huynh MD 18 of 19 cycles completed Oncology Supportive Care Therapy Plan Plan Name Start Date Discontinue Date Treatment Medications Discontinue Reason Plan Provider Zoledronic Acid (ZOMETA) Infusion 03/19/2020 07/11/2021 No medications scheduled. Provider Discretion Elgin Tyler MD
--- OUTSIDE RECORDS SUMMARY | 2025-04-12 01:45 | XMS_ITS | Clinical Summary ---
Author Organization [facility] Address [address] [place] [address] Phone Care Team Providers Care Sprinkler Truck Driver Name Role Phone Unavailable Primary Care Provider Unavailabl e Allergies No known active allergies Medications exemestane (AROMASIN) 25 mg tablet TAKE 1 TABLET DAILY AFTER A MEAL 03/06/2025 Active DULoxetine (CYMBALTA) 60 mg Capsule, Delayed Release(E.C.) Take 60 mg by mouth. Active DULoxetine (CYMBALTA) 30 mg Capsule, Delayed Release(E.C.) 12/08/2024 Activ e atorvastatin (LIPITOR) 40 mg tablet Take 40 mg by mouth daily. 01/12/2025 Active vitamin E (AQUASOL E) 22.5 mg (50 unit)/mL Drops Take 180 mg by mouth daily. 12/03/2022 Active calcium CARBONATE-vitami n D3 (CALTRATE 600 + D) 600 mg-800 unit Tablet 04/21/2023 Active Active Problems Problem Noted Date Diagnosed Date Other chest pain 04/04/2025 Encounters Date Type Department Care Team Description 04/04/2025 External Device Data [facility] ABSTRACTION Provider, Abstract 04/04/2025 External Device Data [facility] ABSTRACTION Provider, Abstract 04/04/2025 External Device Data [facility] ABSTRACTION Provider, Abstract 04/03/2025 5:01 PM SHUTTLE FILLER - 04/04/2025 1:52 PM SHUTTLE FILLER Hospital Encounter [facility] Emergency Clinical Decision Unit [address] [place] [address] Andree Aldana MD Wilmas Jr., Scott Osborne MD Other chest pain (Primary Dx) Discharge Disposition: Home or Self Care 04/03/2025 Travel from Last 3 Months Social History Tobacco Use Types Packs/Day Years Used Date Smoking Tobacco: Never Assessed Feeling Safe Answer Date Recorded Are you in a relationship wi th someone who hurts you emotionally and/or physically? No 04/03/2025 Comments Unknown Sex and Gender Information Value Date Recorded Sex Assigned at Not on file Legal Sex Female 3:30 AM SHUTTLE FILLER Gender Identity Not on file Sexual Orientation Not on file Last Filed Vital Signs Vital Sign Reading Time Taken Comments Blood Pressure 145/94 04/04/2025 1:35 PM SHUTTLE FILLER Pulse 80 04/04/2025 1:35 PM SHUTTLE FILLER Temperature 36.9 C (98.4 F) 04/04/2025 1:35 PM SHUTTLE FILLER Respiratory Rate 18 04/04/2025 1:35 PM SHUTTLE FILLER Oxygen Saturation 96% 04/04/2025 1:35 PM SHUTTLE FILLER Inhaled Oxygen Concentration - - Weight 81.6 kg (180 lb) 04/03/2025 3:30 PM SHUTTLE FILLER Height 162.6 cm (5' 4) 04/03/2025 3:30 PM SHUTTLE FILLER Body Mass Index 30.9 04/03/2025 3:30 PM SHUTTLE FILLER Plan of Treatment Health Maintenance Due Date Last Done Comments Pre-Diabetes and Diabetes Screening 1965 HEPATITIS B VACCINES (1 of 3 - 19+ 3-dose series) 1985 HPV/Cotest (21-29) 1987 CERVICAL CANCER SCREENING 1996 HPV/Cotest (30-65) 1996 PAP SMEAR 1996 BREAST CANCER SCREENING 2006 FIT-DNA Q 3 years 2011 FIT/FOBT Q 1 year 2011 Flex Sig/CT Colonography Q 5 years 2011 ZOSTER VACCINE (1 of 2) 2016 INFLUENZA VACCINE (#1) 2024 , 02/20/2020, 02/24/2019, Additional history exists COVID-19 Vaccine (2024-2 6 season) 2025 04/25/2021, 08/05/2020 DTAP/TDAP/TD VACCINES (2 - T d or Tdap) 04/13/2027 04/13/2017 COLORECTAL SCREENING 02/04/2029 02/04/2019 Colorectal Cancer Screening 02/04/2029 Procedures Procedure Name Priority Date/Time Associated Diagnosis Comments ECHO STRESS W CONTRAST EXERCISE Pending Discharge 04/04/2025 1:04 PM SHUTTLE FILLER CTA CHEST W WO CONTRAST Stat 04/03/2025 9:57 PM SHUTTLE FILLER TROPONIN 2 HR, 5TH GEN Timed Study 04/03/2025 8:44 PM SHUTTLE FILLER XR CHEST PA OR AP 1 VW Stat 04/03/2025 7:51 PM SHUTTLE FILLER TROPONIN BASELINE, 5TH GEN Stat 04/03/2025 5:38 PM SHUTTLE FILLER BRAIN NATRIURETIC PEPTIDE, BNP OR PROBNP Stat 04/03/2025 5:38 PM SHUTTLE FILLER COMPREHENSIVE METABOLIC PANEL Stat 04/03/2025 5:38 PM SHUTTLE FILLER CBC WITH DIFFERENTIAL Stat 04/03/2025 5:38 PM SHUTTLE FILLER EKG 12-LEAD Stat 04/03/2025 3:16 PM SHUTTLE FILLER from Last 3 Months Results * ECHO STRESS W CONTRAST EXERCISE (04/04/2025 1:04 PM SHUTTLE FILLER) EJECTION FRACTION EF: INTERFACE SYSTEM 04/04/2025 12:1 2 PM SHUTTLE FILLER Narrative INTERFACE SYSTEM - 04/04/2025 1:21 PM SHUTTLE FILLER [address] [place] [address] [email or web address] Stress Echocardiogram Stoney Protocol Patient: Felicitas Berrios Study ID: ECHO STRESS TEST Gender: F : 1965 Age: 59 Race: CAU Height Study Date: 04/04/2025 Weight: Access. #: [id number] BP: *Referring Physician:* Rosenda Damon *Ordering Physician:* Rosenda Damon electric refrigerator preparer: Nurse: Indications: Chest pain. STUDY CONCLUSIONS: SUMMARY: - Procedure narrative: Treadmill exercise testing was performed using the Stoney protocol. The patient exercised for 6 min 58 sec, to a maximal work rate of 8.5mets. Exercise was terminated dyspnea and fatigue. Post-stress images were obtained within 90 seconds of stress cessation. - Stress data: The patient experienced chest pain and shortness of breath with exercise. Functional capacity was fair. - Stress ECG conclusions: There are no stress arrhythmias or conduction abnormalities. < [address] depressions in inferior and anterolateral leads, not meeting criteria for ischemia. - Baseline: LV global systolic function is normal. - Staged echo conclusions: There was no echocardiographic evidence for stress-induced ischemia. Impressions: Pt noted chest pain but there was no objective evidence of ischemia by echocardiogram or ECG criteria. 6 minutes 58 seconds; 8.5 METS. Cardiac Anatomy: Baseline ECG: Normal sinus rhythm. Stress protocol: - Baseline HR: 78bpm - Exercise HR: 162bpm BP: 199/87 Stress results: Maximal heart rate during stress was 162bpm (100% of maximal predicted heart rate). The maximal predicted heart rate was 162bpm. The target heart rate was 138bpm. The heart rate response to stress is normal. There is an appropriate response to stress. The rate-pressure product for the peak heart rate and blood pressure was 08149ja Hg/min. The patient experienced chest pain and shortness of breath with exercise. Functional capacity was fair. Treadmill exercise testing was performed using the Stoney protocol. The patient exercised for 6 min 58 sec, to a maximal work rate of 8.5mets. Exercise was terminated dyspnea and fatigue. Post-stress images were obtained within 90 seconds of stress cessation. Stress ECG: There are no stress arrhythmias or conduction abnormalities. < [address] depressions in inferior and anterolateral leads, not meeting criteria for ischemia. Baseline: Left ventricle: Cavity size is normal. Systolic function is normal. Normal wall motion; no regional wall motion abnormalities. Peak stress: Left ventricle: Cavity size is reduced. Systolic function is augmented. Normal wall motion; no regional wall motion abnormalities. Stress echo results: There was no echocardiographic evidence for stress-induced ischemia. Procedure data: Consent: The risks, benefits, and alternatives to the procedure were explained to the patient and informed consent was obtained. Procedure information: The patient arrived at the laboratory. A baseline ECG was recorded. Surface ECG leads and automatic cuff blood pressure measurements were monitored. A transthoracic stress echocardiogram was performed. Images were captured at baseline and peak exercise. Intravenous contrast (Definity) was administered. Study completion: There were no complications. Stoney protocol. Stress echocardiogram. Birthdate: Patient birthdate: 1965. Age: Patient is 59year(s) old. Sex: gender: female. Study date: Study date: 04/04/2025. Study time: 12:12 PM. Prepared and Electronically Authenticated Augustine Chester [id number] Procedure Note Augustine Chester MD - 04/04/[address] [address] [email or web address] Stress Echocardiogram Stoney Protocol Patient: Felicitas Berrios Study ID: ECHO STRESS TEST Gender: F : 1965 Age: 59 Race: CAU Height Study Date: 04/04/2025 Weight: Access. #: [id number] BP: *Referring Physician:* Rosenda Damon *Ordering Physician:* Rosenda Damon electric refrigerator preparer: Nurse: Indications: Chest pain. STUDY CONCLUSIONS: SUMMARY: - Procedure narrative: Treadmill exercise testing was performed usingthe Stoney protocol. The patient exercised for 6 min 58 sec, to a maximalwork rate of 8.5mets. Exercise was terminated dyspnea and fatigue.Post-stress images were obtained within 90 seconds of stress cessation. - Stress data: The patient experienced chest pain and shortness of breathwith exercise. Functional capacity was fair. - Stress ECG conclusions: There are no stress arrhythmias or conduction abnormalities. < [address] depressions in inferior andanterolateral leads, not meeting criteria for ischemia. - Baseline: LV global systolic function is normal. - Staged echo conclusions: There was no echocardiographic evidence for stress-induced ischemia. Impressions: Pt noted chest pain but there was no objective evidence of ischemia by echocardiogram or ECG criteria. 6 minutes 58 seconds; 8.5METS. Cardiac Anatomy: Baseline ECG: Normal sinus rhythm. Stress protocol: - Baseline HR: 78bpm - Exercise HR: 162bpm BP: 199/87 Stress results: Maximal heart rate during stress was 162bpm (100% ofmaximal predicted heart rate). The maximal predicted heart rate was 162bpm. Thetarget heart rate was 138bpm. The heart rate response to stress is normal. Thereis an appropriate response to stress. The rate-pressure product for thepeak heart rate and blood pressure was 88520pq Hg/min. The patientexperienced chest pain and shortness of breath with exercise. Functional capacitywas fair. Treadmill exercise testing was performed using the Bruceprotocol. The patient exercised for 6 min 58 sec, to a maximal work rate of8.5mets. Exercise was terminated dyspnea and fatigue. Post-stress images wereobtained within 90 seconds of stress cessation. Stress ECG: There are no stress arrhythmias or conduction abnormalities.< [address] depressions in inferior and anterolateral leads, notmeeting criteria for ischemia. Baseline: Left ventricle: Cavity size is normal. Systolic function is normal.Normal wall motion; no regional wall motion abnormalities. Peak stress: Left ventricle: Cavity size is reduced. Systolic function is augmented. Normal wall motion; no regional wall motion abnormalities. Stress echo results: There was no echocardiographic evidence for stress-induced ischemia. Procedure data: Consent: The risks, benefits, and alternatives to the procedure were explained to the patient and informed consent was obtained. Procedure information: The patient arrived at the laboratory. A baseline ECG was recorded. Surface ECG leads and automatic cuff blood pressuremeasurements were monitored. A transthoracic stress echocardiogram was performed.Images were captured at baseline and peak exercise. Intravenous contrast(Definity) was administered. Study completion: There were no complications. Stoney protocol. Stress echocardiogram. Birthdate: Patient birthdate: 1965. Age: Patient is 59year(s) old. Sex: gender:female. Study date: Study date: 04/04/2025. Study time: 12:12 PM. Preparedand Electronically Authenticated Augustine Chester [id number] us Rosenda Damon NP US ORDERABLES Final Resu lt INTERFACE SYSTEM Refer to clinic/hospital department * CTA CHEST W WO CONTRAST (04/03/2025 9:57 PM SHUTTLE FILLER) Anatomical Region Laterality Modality Chest Computed Tomogra phy 04/03/2025 9:58 PM SHUTTLE FILLER Impressions 04/03/2025 10:04 PM SHUTTLE FILLER IMPRESSION: 1. No pulmonary embolism or thoracic aortic aneurysm/dissection. Dictation location: Location 4 Narrative 04/03/2025 10:04 PM SHUTTLE FILLER CTA CHEST W WO CONTRAST DATE: 04/03/2025 9:57 PM CLINICAL INDICATION: Pulmonary embolism (PE) suspected, high prob. COMPARISON: None. CONTRAST: IOPAMIDOL 61 % INTRAVENOUS SOLUTION (MULTI-DOSE BULK PACK) Given:80 mL TECHNIQUE: Contrast enhanced CT of the chest, per CTA PE protocol. Maximum intensity pixel projections (MIPs) were generated. The examination was performed with the adjustment of mA according to the patient size and/or the use of Iterative Reconstruction Technique. FINDINGS: No filling defect is seen within the main, lobar, or segmental pulmonary arteries. No evidence of right ventricular strain. No thoracic aortic aneurysm or dissection. No coronary artery atherosclerotic calcifications. The axillary, mediastinal, and hilar lymph nodes are not enlarged. No pleural effusion, pneumothorax, or focal consolidation. Within the imaged portions of the upper abdomen, there are hypodensities in the liver measuring up to 2.3 cm and in the left kidney measuring up to 2.1 cm which are incompletely evaluated on the current study. The imaged bones are intact. There is mild thoracolumbar scoliosis. Procedure Note Ricardo Smith MD - 04/03/2025 CTA CHEST W WO CONTRAST DATE: 04/03/2025 9:57 PM CLINICAL INDICATION: Pulmonary embolism (PE) suspected, high prob. COMPARISON: None. CONTRAST: IOPAMIDOL 61 % INTRAVENOUS SOLUTION (MULTI-DOSE BULK PACK) Given:80 mL TECHNIQUE: Contrast enhanced CT of the chest, per CTA PE protocol. Maximum intensity pixel projections (MIPs) were generated. The examination was performed with the adjustment of mA according to the patient size and/or the use of Iterative Reconstruction Technique. FINDINGS: No filling defect is seen within the main, lobar, or segmental pulmonary arteries. No evidence of right ventricular strain. No thoracic aortic aneurysm or dissection. No coronary artery atherosclerotic calcifications. The axillary, mediastinal, and hilar lymph nodes are not enlarged. No pleural effusion, pneumothorax, or focal consolidation. Within the imaged portions of the upper abdomen, there are hypodensities in the liver measuring up to 2.3 cm and in the left kidney measuring up to 2.1 cm which are incompletely evaluated on the current study. The imaged bones are intact. There is mild thoracolumbar scoliosis. IMPRESSION: 1. No pulmonary embolism or thoracic aortic aneurysm/dissection. Dictation location: Location 4 Scott Shin Jr., MD CT ORDERABLES Final Resu lt * TROPONIN 2 HR, 5TH GEN (04/03/2025 8:44 PM SHUTTLE FILLER) TROPONIN T, 2 HR 5TH GEN 6 <=10 ng/L 04/03/2025 9:54 PM SHUTTLE FILLER [facility] [employer] [facility] Blood Venipuncture / Unknown 04/03/2025 8:44 PM SHUTTLE FILLER 04/03/2025 8:48 PM SHUTTLE FILLER Narrative [facility] [employer] [facility] - 04/03/2025 9:54 PM SHUTTLE FILLER Troponin Detectable but normal range. Delay in collection of timed specimen beyond recommended collection interval. Results must be interpreted in clinical context. Unable to calculate delta. Andree Aldana MD CHEMISTRY ORDERABLES Fin al Result [facility]# [id number] [address] [facility] [place] [address] * XR CHEST PA OR AP 1 VW (04/03/2025 7:51 PM SHUTTLE FILLER) Anatomical Region Laterality Modality Chest Computed Radiogr aphy 04/03/2025 7:51 PM SHUTTLE FILLER Narrative 04/03/2025 7:56 PM SHUTTLE FILLER EXAM: PORTABLE AP CHEST DATE: 04/03/2025 7:51 PM HISTORY: Chest Pain. See Reason for Exam FINDINGS: Heart size and mediastinal width are normal. The lungs are clear. There is no pleural effusion or pneumothorax DICTATION LOCATION: Location 4 Procedure Note Jagdish Angulo MD - 04/03/2025 EXAM: PORTABLE AP CHEST DATE: 04/03/2025 7:51 PM HISTORY: Chest Pain. See Reason for Exam FINDINGS: Heart size and mediastinal width are normal. The lungs are clear. There is no pleural effusion or pneumothorax DICTATION LOCATION: Location 4 Andree Aldana MD DIAGNOSTIC IMAGING ORDER SALVADOR Final Result * TROPONIN BASELINE, 5TH GEN (04/03/2025 5:38 PM SHUTTLE FILLER) Pathologist [facility] TROPONIN T, BASELINE 5TH GEN <6 <=10 ng/L 04/03/2025 6:39 PM [facility] [[email or web address]] [facility] Blood Venipuncture / Unknown 04/03/2025 5:38 PM SHUTTLE FILLER 04/03/2025 5:55 PM SHUTTLE FILLER Narrative [facility] - 04/03/2025 6:39 PM SHUTTLE FILLER Troponin Undetectable Andree Aldana MD CHEMISTRY ORDERABLES Fin al Result [employer] [facility] CLIA# [id number] [address] [place] [address] * CBC WITH DIFFERENTIAL (04/03/2025 5:38 PM SHUTTLE FILLER) [facility] WBC 6.7 4.0 - 9.8 K/uL 04/03/2025 6:25 PM [facility] [[email or web address]] [facility] RBC 4.57 3.90 - 4.90 M/uL 04/03/2025 6:25 PM [facility] [[email or web address]] [facility] HEMOGLOBIN 13.4 11.8 - 14.8 g/dL 04/03/2025 6:25 PM [facility] [[email or web address]] [facility] HEMATOCRIT 41.8 35.5 - 44.0 % 04/03/2025 6:25 PM [facility] [[email or web address]] [facility] MCV 91.5 82.0 - 99.0 fL 04/03/2025 6:25 PM [facility] [[email or web address]] [employer] [facility] MCH 29.3 27.2 - 32.6 pg 04/03/2025 6:25 PM [facility] [[email or web address]] [employer] [facility] MCHC 32.1 31.5 - 35.5 g/dL 04/03/2025 6:25 PM SHUTTLE FILLER [facility] RDW 13.0 11.5 - 14.5 % 04/03/2025 6:25 PM SHUTTLE FILLER [facility] RDW-STDEV 43.4 37.1 - 48.7 fL 04/03/2025 6:25 PM SHUTTLE FILLER [facility] [place] PLATELETS 257 140 - 350 K/uL 04/03/2025 6:25 PM SHUTTLE FILLER [facility] MPV 11.1 9.3 - 12.4 fL 04/03/2025 6:25 PM SHUTTLE FILLER [facility] NEUTROPHILS 57 % 04/03/2025 6:25 PM SHUTTLE FILLER [facility] LYMPHOCYTES 33 % 04/03/2025 6:25 PM SHUTTLE FILLER [facility] MONOCYTES 7 % 04/03/2025 6:25 PM SHUTTLE FILLER [facility] EOSINOPHILS 3 % 04/03/2025 6:25 PM SHUTTLE FILLER [facility] BASOPHILS 1 % 04/03/2025 6:25 PM SHUTTLE FILLER [facility] IMMATURE GRANULOCYTES 0 % 04/03/2025 6:25 PM SHUTTLE FILLER [facility] NEUTROPHIL ABSOLUTE 3.78 1.90 - 7.00 K/uL 04/03/2025 6:25 PM SHUTTLE FILLER [facility] LYMPHOCYTE ABSOLUTE 2.22 0.70 - 4.50 K/uL 04/03/2025 6:25 PM SHUTTLE FILLER [facility] MONOCYTE ABSOLUTE 0.43 0.10 - 1.30 K/uL 04/03/2025 6:25 PM SHUTTLE FILLER [facility] EOSINOPHIL ABSOLUTE 0.17 0.00 - 0.70 K/uL 04/03/2025 6:25 PM SHUTTLE FILLER [facility] BASOPHILS ABSOLUTE 0.04 0.00 - 0.20 K/uL 04/03/2025 6:25 PM SHUTTLE FILLER [facility] [place] IMMATURE GRANULOCYTES ABSOLUTE 0.02 0.00 - 0.03 K/uL 04/03/2025 6:25 PM SHUTTLE FILLER [employer] [place] Blood Venipuncture / Unknown 04/03/2025 5:38 PM SHUTTLE FILLER 04/03/2025 5:55 PM SHUTTLE FILLER Andree Aldana MD HEMATOLOGY ORDERABLES Fi nal Result Performing Organization Address City/[facility]/ZIP Co de Phone Number [facility] [employer] [facility] CLIA# [id number] [address] [place] [address] * BRAIN NATRIURETIC PEPTIDE, BNP OR PROBNP (04/03/2025 5:38 PM SHUTTLE FILLER) PROBNP, N TERMINAL 47 <124 pg/mL 2024 6:39 PM SHUTTLE FILLER [facility] [employer] [facility] Comment: INTERPRETIVE COMMENT based on diagnosis: Diagnostic NT pro-BNP cutoffs for Heart Failure in the absence of renal failure is suggested for the following ranges <75 years: <125 pg/mL >=75 years: <450 pg/mL Exclusionary rule out cut-point for Acute Decompensated Heart Failure(ADHF) All ages: <300 pg/mL Diagnostic NT pro-BNP cutoffs for Acute Decompensated Heart Failure(ADHF) in the absence of renal failure is suggested for the following ages <50 years: > 450 pg/mL 50-75 years: > 900 pg/mL >75 years: >1800 pg/mL Blood Venipuncture / Unknown 04/03/2025 5:38 PM SHUTTLE FILLER 04/03/2025 5:55 PM SHUTTLE FILLER Andree Aldana MD CHEMISTRY ORDERABLES Fin al Result [facility] [employer] [facility] CLIA# [id number] [address] [place] [address] * COMPREHENSIVE METABOLIC PANEL (04/03/2025 5:38 PM SHUTTLE FILLER) SODIUM 140 136 - 145 mmol/L 04/03/2025 6:40 PM SHUTTLE FILLER [facility] [employer] [facility] POTASSIUM 4.3 3.5 - 5.0 mmol/L 04/03/2025 6:40 PM [facility] Comment:Hemolysis present. R esult may be falsely elevated. CHLORIDE 104 98 - 107 mmol/L 04/03/2025 6:40 PM [facility] CO2 25 22 - 29 mmol/L 04/03/2025 6:40 PM [facility] CALCIUM 9.6 8.6 - 10.2 mg/dL 04/03/2025 6:40 PM [facility] BUN 14 6 - 20 mg/dL 04/03/2025 6:40 PM [facility] CREATININE 0.90 0.51 - 0.95 mg/dL 04/03/2025 6:40 PM [facility] GLUCOSE 94 74 - 99 mg/dL 04/03/2025 6:40 PM [facility] TOTAL PROTEIN 7.1 6.7 - 8.6 g/dL 04/03/2025 6:40 PM [facility] ALBUMIN 4.5 3.5 - 5.2 g/dL 04/03/2025 6:40 PM [facility] BILIRUBIN TOTAL 0.5 0.0 - 1.2 mg/dL 04/03/2025 6:40 PM [facility] ALKALINE PHOSPHATASE 76 35 - 104 U/L 04/03/2025 6:40 PM [facility] AST 04/03/2025 6:40 PM [facility] Comment:Test cannot be perfo rmed. Sample hemolysis interference above limits. Redraw if indicated. ALT 14 <34 U/L 04/03/2025 6:40 PM [facility] GFR >60 >=60 mL/min/1.7 3 sq meter 04/03/2025 6:40 PM [facility] Comment:eGFR calculated with 2020 CKD-EPI equation. Vegetarian diet, extremely high or low muscle mass, and may affect results. Cystatin C with Glomerular Filtration Rate is a suitable alternative for these patients. ANION GAP 11 8 - 16 mmol/L 04/03/2025 6:40 PM [facility] Blood Venipuncture / Unknown 04/03/2025 5:38 PM SHUTTLE FILLER 04/03/2025 5:55 PM SHUTTLE FILLER Narrative [facility] - 04/03/2025 6:40 PM SHUTTLE FILLER Samples containing indocyanine green cause interferences on Total and/or Direct Bilirubin and must not be measured. Andree Aldana MD CHEMISTRY ORDERABLES Fin al Result [facility] CLIA# [id number] [address] [facility] [place] [address] * EKG 12-LEAD (04/03/2025 3:16 PM SHUTTLE FILLER) 04/03/2025 3:16 PM SHUTTLE FILLER [employer] [facility] - 04/03/2025 4:[address] [facility] [address] [place] [address] Test Date: 2025-04-03 Pat Name: FELICITAS BERRIOS Department: 36 Room: Gender: F [employer] Leader: [id number] : 1965 Requested By: Order Number: [id number] Jerzy ALLEN: Stoney Boles Measurements Intervals [place] Rate: 84 P: 47 PA: 148 QRS: 5 QRSD: 90 T: 51 QT: 364 QTc: 431 Interpretive Statements Sinus rhythm Electronically Signed On 04-03-2025 16:48:32 SHUTTLE FILLER by Stoney Boles Procedure Note Stoney Boles MD - 04/03/2025 [facility] [address] [place] [address] Test Date: 2025-04-03 Pat Name: FELICITAS BERRIOS Department: 36 Room: Gender: F [employer] Leader: [id number] : 1965 Requested By: Order Number: [id number] Jerzy ALLEN: Stoney Boles Measurements Intervals [place] Rate: 84 P: 47 PA: 148 QRS: 5 QRSD: 90 T: 51 QT: 364 QTc: 431 Interpretive Statements Sinus rhythm Electronically Signed On 04-03-2025 16:48:32 SHUTTLE FILLER by Stoney Boles us Andree Aldana MD ECG ORDERABLES Final Re sult INTERFACE SYSTEM Refer to clinic/hospital department from Last 3 Months Insurance Advance Directives For more information, please contact: [phone] * Default Full Code - Needs Discussion (Latest Code Status on File) Date Activated Date Inactivated Comments 04/04/2025 7:24 AM 04/04/2025 4:02 PM
--- OUTSIDE RECORDS SUMMARY | 2025-04-12 01:46 | XMS_ITS | Clinical Summary ---
Author Organization [facility] Address [address] [place] [address] Care Team Providers Care Bilingual Loan Processor Name Role Phone Marin Piña DO Primary Care Provider [phone] Source Comments [facility],non-owned Affiliates and Associated Physician Practices is amultiple site organization consisting of ambulatory clinics and hospital sitesin [place], [place], [place] and [place]. This disclosure is being madepursuant to the Care Everywhere program and may not contain all information available regarding this patient. Last updated 18.[facility] Allergies No known active allergies Medications * Be aware that medications may not be up to date on this document. Alwaysverify current medications with the patient. DULoxetine (CYMBALTA) 60 MG capsule Take 90 mg by mouth once daily Active calcium carbonate-vitam in D (OSCAL 500/200 D-3) 500-200 MG-UNIT tablet Take 1 tablet by mouth 2 times daily Active exemestane (AROMASIN) 25 MG tablet TAKE 1 TABLET DAILY AFTER A MEAL 1 Active UBRELVY 100 MG tablet 1 Active hydrOXYzine HCl (Atarax) 25 MG tabletIndicatio ns:Anxiety Take 1 (one) tablet by mouth 3 times daily as needed for Itching Reasons: Feeling Anxious 30 tablet 3 Active busPIRone (Buspar) 5 MG tablet Take 1 (one) tablet by mouth 3 times daily 60 tablet 3 Active Additional Information Patient not taking.Reported on 07/14/2024 calcium carbonate - vitamin D (Calcium Plus Vitamin D3) 600-20 MG-MCG tablet 3 Active vitamin D, ergocalciferol, (Drisdol) 1.25 MG (37608 UT) capsule 4 Active atorvastatin (Lipitor) 40 MG tablet TAKE 1 TABLET DAILY 90 tablet 3 5 Active Active Problems Problem Noted Date Diagnosed Date Bilateral malignant neoplasm of breast in female 11/02/2018 Overview (04/18/2019): Overview: Added automatically from request for surgery [id number] 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 Malignant neoplasm of centra l portion of left breast in female, estrogen receptor positive 10/22/2018 Vitamin D deficiency 04/14/2017 Hypertriglyceridemia 04/14/2017 Hypercholesteremia 04/13/2017 History of depression 04/13/2017 Major depression 03/29/2012 Overview (03/29/2012): Dr Peg Hemphill Hypothyroidism 03/29/2012 Overview (08/13/2012): Dr KASPER Had ultrasound, dx hypothyroid On replacement therapy Resolved Problems Problem Noted Date Diagnosed Date Resolved Date Adhesive capsulitis of shoulder 06/06/2013 04/13/2017 Heel pain 04/17/2010 08/13/2012 Plantar fasciitis 04/17/2010 08/13/2012 Contracted, tendon 04/17/2010 3 Encounters Date Type Department Care Team Description 04/03/2025 Nurse Triage [facility] [address] [place] [address] Marin Piña DO Chest Pain 01/11/2025 Refill [facility] [address] [place] [address] Marin Piña DO Refill Request from Last 3 Months Immunizations Immunization Administration Dates Next Due Covid Reveal primary monoval ent 12+ yr 0.3mL Purple cap 04/25/2021 INFLUENZA VACCINE, CELL CULT URE, QUADR. (FLUCELVAX QUADRIVALENT; 6MO+) (CCIIV4) 03/18/2021,02/20/2020,02/24/2019 Influenza Pf Intradermal (ADULT) 03/06/2014 TDAP (7yrs+) 04/13/2017 Family History Medical History Relation Name Comments Hypercholesterolemia Brother 1 Migraine Brother 2 Arthritis - Rheumatoid Father Hypercholesterolemia Father Kidney Disease Father Hypertension Mother Migraine Mother Migraine Other 1 Depression Other 2 mother and sist er Hypercholesterolemia Sister 1 Migraine Sister 2 Relation Name Status Comments Brother 1 Brother 2 Father Mother Other 1 Other 2 Sister 1 Sister 2 Social History Tobacco Use Types Packs/Day Years Used Date Smoking Tobacco: Never Smokeless Tobacco: Never Tobacco Cessation:Counseling Given: Not Answered Alcohol Use Standard Drinks/Week Comments No 0.8 (1 standard drink = 0.6 oz p ure alcohol) PHQ-2 Answer Date Recorded Patient Health Questionnaire-2 Score 0 07/14/2024 Comments No Sex and Gender Information Value Date Recorded Sex Assigned at Not on file Legal Sex Female 6:01 AM OVERHEAD DOOR TECHNICIAN Gender Identity Not on file Sexual Orientation Not on file Last Filed Vital Signs Vital Sign Reading Time Taken Comments Blood Pressure 118/76 07/14/2024 1:57 PM OVERHEAD DOOR TECHNICIAN Pulse 93 07/14/2024 1:57 PM OVERHEAD DOOR TECHNICIAN Temperature 37.1 C (98.7 F) 07/14/2024 1:57 PM OVERHEAD DOOR TECHNICIAN Respiratory Rate - - Oxygen Saturation 99% 07/14/2024 1:57 PM OVERHEAD DOOR TECHNICIAN Inhaled Oxygen Concentration - - Weight 78.5 kg (173 lb) 07/14/2024 1:57 PM OVERHEAD DOOR TECHNICIAN Height 164.8 cm (5' 4.88) 07/14/2024 1:57 PM CS T Body Mass Index 28.89 07/14/2024 1:57 PM OVERHEAD DOOR TECHNICIAN Plan of Treatment Health Maintenance Due Date Last Done Comments COLOGUARD (AGES 45-75) - COLON CA SCREENING 1965 CT COLONOGRAPHY - COLON CA SCREENING 1965 FIT - COLON CA SCREENING 1965 FLEX SIG - COLON CA SCREENING 1966 HIV SCREENING 1981 HEPATITIS C SCREENING 05/25/1984 HEPATITIS B VACCINE (1 of 3 - 19+ 3-dose series) 1985 Cervical Cancer Screening 1987 PAP SMEAR 1987 PAP with HPV 1996 PNEUMOCOCCAL VACCINE 50+ (1 of 1 - PCV) 2016 ZOSTER VACCINE (1 of 2) 2016 COVID-19 VACCINE (4 - season) 2025 04/25/2021, 08/26/2020, 08/05/2020 INFLUENZA VACCINE (#1) 2025 1, 02/20/2020, 02/24/2019, Additional history exists SCREENING FOR DIABETES 09/03/2026 4, 09/04/2023, 04/13/2017, Additional history exists DTAP/TDAP/TD VACCINES (2 - Td or Tdap) 04/13/2027 04/13/2017 COLON MONITORING 02/04/2029 02/04/2019 COLONOSCOPY - COLON CA SCREENING 02/04/2029 02/04/2019 Colorectal Cancer Screening 02/04/2029 DEPRESSION SCREENING Completed 07/14/2024, 09/03/2023, 10/03/2022 HIB VACCINE Aged Out No longer eligi ble based on patient's age to complete this topic HPV VACCINE Aged Out No longer eligi ble based on patient's age to complete this topic MENINGOCOCCAL (Group B) VACCINE SHARED DECISION-MAKING Aged Out No longer eligible based on patient's age to complete this topic MENINGOCOCCAL GROUPS A/C/Y/W VACCINE Aged Out No longer eligible based on patient's age to complete this topic Procedures Procedure Name Priority Date/Time Associated Diagnosis Comments COMPREHENSIVE METABOLIC PANEL Routine 09/04/2023 10:00 AM CDT Annual physical exam ENDOSCOPY, COLON, SCREENING Routine 02/04/2019 from Last 3 Months or Most Recently Relevant to Health Maintenance Results * COMPREHENSIVE METABOLIC PANEL (09/04/2023 10:00 AM CDT) Glucose 94 70 - 99 mg/dL [facility] ACCOUNT BILL BUN 14 6 - 24 mg/dL [facility] ACCOUNT BILL Creatinine 0.94 0.57 - 1.00 mg/dL [facility] ACCOUNT BILL eGFR by CKD-EPI 71 >59 mL/min/1.7 3 [facility] ACCOUNT BILL BUN/Creatinine Ratio 15 9 - 23 [facility] ACCOUNT BILL Sodium 141 134 - 144 mmol/L [facility] ACCOUNT BILL Potassium 4.4 3.5 - 5.2 mmol/L [facility] ACCOUNT BILL Chloride 105 96 - 106 mmol/L [facility] ACCOUNT BILL CO2 22 20 - 29 mmol/L [facility] ACCOUNT BILL Calcium 9.7 8.7 - 10.2 mg/dL [facility] ACCOUNT BILL Protein Total 6.9 6.0 - 8.5 g/dL [facility] ACCOUNT BILL Albumin 4.7 3.8 - 4.9 g/dL [facility] ACCOUNT BILL Globulin Total 2.2 1.5 - 4.5 g/dL [facility] ACCOUNT BILL Albumin/Globulin Ratio 2.1 1.2 - 2.2 [facility] ACCOUNT BILL Bilirubin Total 0.8 0.0 - 1.2 mg/dL [facility] ACCOUNT BILL Alkaline Phosphatase 63 44 - 121 IU/L [facility] ACCOUNT BILL AST 19 0 - 40 IU/L [facility] ACCOUNT BILL ALT 15 0 - 32 IU/L [facility] ACCOUNT BILL Comment:FASTING Blood BLOOD SPECIMEN / Unknown 09/04/2023 10:00 AM CDT 09/04/2023 Narrative Resulting Agency Comment Lab Testing performed at: [facility] [address] [id number] Marin Piña DO LAB - CHEMISTRY ORDERABLES Fin al Result [facility] ACCOUNT BILL [address] [place] [address] * ENDOSCOPY, COLON, SCREENING (02/04/2019) us Scanned Document GI PROCEDURE ORDERABLES Final R esult from Last 3 Months or Most Recently Relevant to Health Maintenance Insurance [facility] * Guarantor: TEZ BERRIOS Account Type Relation to Patient Date of Phone Billing Address Personal/Family [address] [place] [address] Care Teams Bilingual Loan Processor Relationship Specialty Start Date End Date Marin Piña DO [address] [place] [id number] PCP - General Family Medicine 04/25/21
--- NOTE | 2025-04-12 12:53 | WPDANESEPPF ---
Anes - Initial Pre Proc Eval Procedure: Operation Date: 04/12/25 14:30 Proposed Procedures p Hysteroscopy Dilation and Curettage with Removal of Any Endometrial Lesions, If Needed - Baljinder Tomas MD Date/Time: 04/12/25 12:53 Surgeon: Baljinder Tomas MD Pre Op Diagnosis: abnormal finding on ultrasound Patient Data Age: 59 Gender: F Height: 1.63 m Weight: 80.3 kg Allergies Allergy/AdvReac Type Severity Reaction Status Date / Time No Known Allergies Allergy Verified 04/10/25 09:34 Home Medications ?Medication ?Instructions ?Recorded ?Confirmed ?Type exemestane 25 mg tablet 25 mg PO DAILY 02/01/20 04/10/25 History calcium 250 mg (as 1 tablet PO TID 12/05/21 04/10/25 History citrate)-vitamin D3 5 mcg (200 unit) tablet (Citracal Regular) vitamin E (dl, acetate) 45 mg (100 45 mg PO DAILY 12/30/22 04/10/25 History unit) capsule zoledronic acid 4 mg/5 mL 1 mg IV ONCE 12/30/22 03/16/25 History intravenous solution atorvastatin 40 mg tablet 40 mg PO DAILY 01/27/24 04/10/25 History duloxetine 60 mg capsule,delayed 60 mg PO BID 03/16/25 04/10/25 History release calcium 500 mg (as 1 tablet PO DAILY 04/10/25 04/10/25 History carbonate)-vitamin D3 10 mcg (400 unit) tablet (Calcium 500 + D) cholecalciferol (vitamin D3) 1,250 1,250 mcg PO 2XW 04/10/25 04/10/25 History mcg (50,000 unit) oral wafer Patient hx anesthesia problems: none Family hx anesthesia problems: none Results Review: All pre-operative results and documents have been reviewed as part of the pre-operative evaluation. PENDING SALE TO [facility] Past Medical History Medical History Endometrial polyp Status post hysteroscopy Breast cancer, Tx and Mx Depression High cholesterol Vaginal delivery x 2 Surgical History Surgical History History of carpal tunnel surgery H/O breast surgery H/O mastectomy 11/10/18 Bilateral S/P dilation and curettage History of arthroscopic knee surgery History of surgery on arm Family History Family History Mother Hypertension, Onset Age: 68 Patient's mother is Father Hypertension Family history of elevated blood lipids Sibling Family history of elevated blood lipids Social History Social History Smoking status: Never smoker Second hand tobacco smoke exposure: No Alcohol intake: current Alcohol use details: 2 DRINKS PER MONTH Substance use: never Lack of Transportation: No Lack of Food: Never True Current Housing: I Have Housing Concerned About Future Housing: No Difficulty Paying Gas/Electric Bills: No Difficulty Paying for Meds: No Currently Unemployed: No Education: Bachelor's Degree Difficulty w/ Childcare or Family Care: No Living arrangements: with family Occupation/Education: retired Gender identity (if verbalized by the patient): Female Sexual Orientation (if Verbalized by the Patient): Straight or Heterosexual Spiritual care concerns: No Anes - Eval Final PreProcedure Day of Procedure 04/12/25 12:53 Patient weight: obese Heart: regular rate and rhythm Lungs: clear to auscultation Airway: Mallampati scale class II Neurological: alert and oriented Last oral intake: >/= 8 hours ASA classification: II Emergent: no Anesthetic plan: proceed Anesthesia type and monitoring: general GIVS and standard monitoring Results Review: All pre-operative results and documents have been reviewed as part of the pre-operative evaluation. Informed Consent: The patient's anesthetic plan and its attendant risks and benefits were discussed with the patient/family/POA. Questions were solicited and answers provided to the satisfaction of the patient/family/POA.
--- NOTE | 2025-04-12 12:53 | WPDHPUPDATE1 ---
History and Physical Update Update Date/Time: 04/12/25 12:53 History and Physical has been reviewed, including an updated exam of the patient. There are NO changes in the patient's condition. Risks, benefits, and alternatives have been discussed and questions answered. Patient agrees to proceed with procedure.
[2025-04-12] MEDS: LACTATED RINGERS 1,000 ML 30 ML IV CONT (13:00)
[2025-04-12 13:04] VITALS: BP 153/97; PULSE 75; RESP 16; TEMP 37; O2SAT 100
[2025-04-12] MEDS: ceFAZolin 2 GM in SODIUM CHLORIDE 0.9% IV 50 ML 100 ML IVPB (13:05)
[2025-04-12] MEDS: ACETAMINOPHEN 500 MG TABLET 1000 MG PO (13:05)
[2025-04-12] MEDS: LIDOCAINE 1% LOCAL INJ 10 ML VIAL 20 ML INFILTRATE (13:18)
[2025-04-12] MEDS: KETOROLAC 30 MG/ML VIAL (*BKC) IV PUSH (13:25)
--- NOTE | 2025-04-12 13:26 | S_PTH ---
PATIENT: Felicitas Berrios LOC: [facility] U#:[id number] AGE/SX: 59/F ROOM: RE04/12/[address]: Baljinder Tomas MD : 1965 BED: DIS: 04/12/2025 SPEC #: [id number] RECD: 04/12/25 14:03 STATUS: LUISA REQ #: [id number] ALVAREZ: 04/12/25 13:[address]: Baljinder Tomas DEPT: [facility] Surgical RECD BY: Susi Mcqueen Tissues: A - Endometrial Curettings Procedures: Hematoxylin and Eosin Stain Gross and Microscopic Level 4
--- NOTE | 2025-04-12 13:32 | W.PM.PROC2 ---
Procedure Note - Detailed Date of Procedure 04/12/25 Pre-op Diagnosis abnormal finding on ultrasound Post-op Diagnosis Other (Normal uterine cavity assessment) Procedure Performed Diagnostic hysteroscopy and dilation and curettage Surgeon Baljinder Tomas MD Anesthesia MAC and Local Indications Abnormal ultrasound findings of the endometrium. Findings Uterus sound to 7 cm, uterine cavity normal, atrophic appearing, no lesion, minimal tissue obtained with curettage. Description of Procedure After informed consent was obtained patient was taken to the operating room and adequate IV sedation was administered. Attention was turned to the vagina. Speculum was inserted. Single-tooth tenaculum placed on the anterior lip of the cervix. 10 cc of 1% lidocaine was injected at cervicovaginal interface at the 2,5,8,10 position. The uterus was sounded to 7 cm. The cervix was dilated to an 6 Andrade dilator. The hysteroscope was inserted into the cavity with hydrodilation. The findings were a normal uterine cavity. The hysteroscope was removed. A curettage was performed minimal tissue obtained. The hysteroscope was removed the single-tooth tenaculum was removed hemostasis was noted at the tenaculum site. Sponge count correct. The patient taken to recovery in stable condition. Estimated Blood Loss 5 Drains No Packing No Pathology Yes (scant endometrial curettings) Complications No immediate complications Condition Stable Disposition Same day [facility] Billing Surgery - Charge Forward: Surgery Billing
[2025-04-12 13:33] VITALS: BP 137/86; PULSE 62; RESP 14; O2SAT 100
[2025-04-12 14:00] VITALS: BP 140/83; PULSE 63; O2SAT 99
[2025-04-12] MEDS: ONDANSETRON INJ 4 MG/2 ML VIAL IV PUSH (14:25)
[2025-04-12 14:30] VITALS: BP 151/70; PULSE 58
--- NOTE | 2025-04-12 14:46 | SUR.PHASEII ---
1412: RN called Dr. Nevarez to come please assess patient's excessive shivering. Dr. Nevarez and Dr. Tomas came to bedside to assess patient's status.
[2025-04-12 15:00] VITALS: BP 143/77; PULSE 66
[2025-04-12] MEDS: oxyCODONE HCL (*CRX) 5 MG TAB IR PO (15:06)
[2025-04-12 15:30] VITALS: BP 137/81; PULSE 77
== END 2025-04-12 15:50 | disposition home or self-care (01) ==
PROVIDERS: Visit Provider Obstetrics & Gynecology
PROC: 0U5B8ZZ Destruction of Endometrium, Via Natural or Artificial Opening Endoscopic (ICD-10-PCS; CPT 58563; principal; 2025-04-12 14:30)
DX: R93.89 Abnormal findings on diagnostic imaging of other specified body structures (principal); N85.8 Other specified noninflammatory disorders of uterus; F32.A Depression, unspecified; E78.00 Pure hypercholesterolemia, unspecified; E66.9 Obesity, unspecified; Z68.30 Body mass index [BMI] 30.0-30.9, adult; Z98.890 Other specified postprocedural states; Z85.3 Personal history of malignant neoplasm of breast
CPT/HCPCS: 58558; 88305; J0690; A9270; J1100; J1885; J2003; J2250; J2405; J2704; J3010; J7120